=== PATIENT | female | born 1975 | race Caucasian/White ===

== ENCOUNTER 2019-03-10 16:44 | Inpatient (IN) ==
[2019-03-10] MEDS ORDERED: NS 1,000 ML IV ONE ×2 (19:27→21:51)
[2019-03-10] MEDS ORDERED: NARCAN IV ONE (19:27)
[2019-03-10 19:47] LABS: BASO# 0.01 X1000 (0.0-0.2); BASO% 0.1 % (0.0-0.8); EOS# 0.16 X1000 (0.0-0.7); EOS% 1.7 % (0.0-10.0); HEMOGLOBIN 13.3 g/dL (12.0-16.0); IMM GRAN# 0.02 X1000 (0.0-0.04); IMM GRAN% 0.2 % (0.0-0.5); LYMPH# 1.94 X1000 (1.2-3.4); LYMPH% 20.5 % (20.5-51.1); MCH 31.7 PG (27-31); MCHC 30.9 g/dL (33-37); MCV 102.4 FL (81-99); MONO# 0.98 X1000 (0.11-0.59); MONO% 10.3 % (1.7-9.3); MPV 10.9 FL (7.4-10.4); NEUT# 6.37 X1000 (1.4-6.5); NEUT% 67.2 % (42.2-75.2); PLT 208 X1000 (130-400); RDW 13.1 % (11.5-14.5); WBC 9.48 X1000 (4.8-10.8)
[2019-03-10 19:57] LABS: ALLEN TEST YES; BE -8.7 mmoll (-3.0-3.0); BLOOD TYPE ARTERIAL; HCO3-(ACT) 18.1 mmoll (20.0-26.0); METHB 1.1 % (0.0-1.5); O2(CT) 16.6 mL/dL (15.0-23.0); O2HB 94.5 % (95.0-99.0); PCO2(98.6) 43 mmHg (35-45); PO2(98.6) 88 mmHg (60-100); SAMPLE BLOOD; THB 12.4 g/dL (11.5-17.4); pH(98.6) 7.24 (7.35-7.45)
[2019-03-10 19:58] LABS: MODALITY ROOM AIR
--- NOTE | 2019-03-10 20:03 | EKG Report ---
Test Performed on : 03/10/2019 5:17:54 PM Test Reason : hypotension Blood Pressure : / mmHG Vent. Rate : 042 BPM Atrial Rate : 042 BPM P-R Int : 184 ms QRS Dur : 090 ms QT Int : 450 ms P-R-T Axes : 035 011 020 degrees QTc Int : 375 ms Marked sinus bradycardia. Minimal voltage criteria for LVH, may be normal variant Septal infarct , age undetermined Abnormal ECG When compared with ECG of 28-FEB-2014 14:37, Nonspecific T wave abnormality now evident in Lateral leads Unconfirmed Result
[2019-03-10 20:10] LABS: ALB/GLOB RATIO 1.8; ALBUMIN 4.6 g/dL (3.5-5.0); CALCIUM 9.1 mg/dL (8.8-10.2); MAGNESIUM 2.3 mg/dL (1.5-2.7); POTASSIUM 3.9 mmol/L (3.5-5.1); TOTAL BILIRUBIN 0.32 mg/dL (0.20-1.00); TOTAL PROTEIN 7.1 g/dL (6.3-8.3)
--- NOTE | 2019-03-10 20:13 | Diag Imaging Result Doc PS360 ---
EXAM: CHEST-2 VIEWS HISTORY: short of breath TECHNIQUE: Two views COMPARISON: 02/28/2014 FINDINGS: The lungs are well expanded. The heart is not enlarged. The vessels are not distended. There are no infiltrates. No pleural effusions. IMPRESSION: No acute abnormality. Electronically signed by Tariq Ferrera 03/10/2019 8:10 PM
[2019-03-10 22:44] LABS: URINE SOURCE CATH
[2019-03-10 22:50] LABS: BILIRUBIN URINE NEGATIVE (NEGATIVE); BLOOD URINE NEGATIVE (NEGATIVE); COLOR YELLOW; GLUCOSE URINE NEGATIVE (NEGATIVE); KETONE URINE NEGATIVE (NEGATIVE); LEUKOCYTES URINE NEGATIVE (NEGATIVE); NITRITE URINE NEGATIVE (NEGATIVE); PROTEIN URINE NEGATIVE (NEGATIVE); SP GRAVITY URINE 1.006; TURBIDITY URINE CLEAR (CLEAR); UR EPITHELIAL CELLS <10 /HPF (<10); URINE BACTERIA 4+ /HPF; URINE RBC <10 /HPF (<10); URINE WBC <10 /HPF (<10); UROBILINOGEN URINE NORMAL (NORMAL)
[2019-03-10 22:59] LABS: UR AMPHETAMINES QUAL PRESUMPTIVE POSITIVE (NONE DETECT); UR BARBITUATES QUAL NONE DETECTED (NONE DETECT); UR BENZODIAZEPIN QUAL NONE DETECTED (NONE DETECT); UR CANNABINOIDS QUAL PRESUMPTIVE POSITIVE (NONE DETECT); UR COCAINE QUAL NONE DETECTED (NONE DETECT); UR METHADONE QUAL NONE DETECTED (NONE DETECT); UR OPIATES QUAL NONE DETECTED (NONE DETECT); UR OXYCODONE QUAL NONE DETECTED (NONE DETECT); UR PCP QUAL NONE DETECTED (NONE DETECT)
--- NOTE | 2019-03-10 23:25 | PROVIDER DOCUMENTATION ---
This chart was entered by Kate Acosta Scribe, acting as scribe for Phillip Malagon MD. HPI-General Adult - General Chief Complaint: B/P Problems Stated Complaint: BLOOD PRESSURE PROBLEMS Time Seen by Provider: 03/10/19 19:26 Source: patient Allergies/Adverse Reactions: Patient Allergies Allergy/AdvReac Type Severity Reaction Status Date / Time Penicillins Allergy Severe ANAPHYLAXIS Verified 03/10/19 17:04 Home Medications: Home Medication List Medication Instructions Recorded Confirmed Last Taken Type Bupropion X.l. [Wellbutrin Xl] 150 mg PO BID 06/11/12 03/10/19 03/10/19 History Metoprolol Succinate E.r. [Toprol 200 mg PO DAILY 06/11/12 03/10/19 03/10/19 History Xl] Buspirone HCl 30 mg PO BID 03/10/19 03/10/19 03/09/19 History Celecoxib [Celebrex] 200 mg PO DAILY 03/10/19 03/10/19 03/10/19 History Clonidine [Catapres] 0.1 mg PO DAILY 03/10/19 03/10/19 03/10/19 History Doxepin HCl 10 mg PO QHS 03/10/19 03/10/19 Unknown History Duloxetine [Cymbalta] 60 mg PO DAILY 03/10/19 03/10/19 03/10/19 History Duloxetine [Cymbalta] 90 mg PO QHS 03/10/19 03/10/19 03/09/19 History Ezetimibe [Zetia] 10 mg PO QHS 03/10/19 03/10/19 03/09/19 History Gabapentin [Neurontin] 300 mg PO TID 03/10/19 03/10/19 03/10/19 History Lisinopril 40 mg PO DAILY 03/10/19 03/10/19 03/10/19 History Montelukast Sodium [Singulair] 10 mg PO DAILY 03/10/19 03/10/19 03/06/19 History Olanzapine [Zyprexa] 10 mg PO DAILY 03/10/19 03/10/19 03/10/19 History Omeprazole 40 mg PO DAILY 03/10/19 03/10/19 03/10/19 History Rosuvastatin Calcium [Crestor] 40 mg PO QHS 03/10/19 03/10/19 03/09/19 History Tizanidine [Zanaflex] 4 mg PO TID 03/10/19 03/10/19 03/10/19 History Valacyclovir HCl [Valtrex] 500 mg PO DAILY 03/10/19 03/10/19 03/10/19 History Zonisamide [Zonegran] 200 mg PO BID 03/10/19 03/10/19 03/10/19 History - History of Present Illness -Gen Adult Nature of Presenting Problems: pt is a 43 yr old female presenting with 4 day complaint of nausea, vomiting and diarrhea. pt reports onset after smoking meth for the 1st time. pt also admits weakness, fatigue and loss of appetite. pt denies hx of drug abuse, states "I just wanted to try it" Location of Pain/Injury: reports: none Pain Radiation: reports: no radiation Quality of Pain: reports: none Severity: reports: moderate Onset/Duration: reports: 4 days ago Timing: reports: still present Context/Activities at Onset: reports: other (onset just after smoking meth) Modifying Factors: improves with: nothing Associated Symptoms: reports: diarrhea, fatigue, nausea, vomiting, weakness. denies: chest pain, fever/chills, genitourinary problems, shortness of breath Similar Symptoms Previously?: No Recently seen or treated by another doctor?: No Review of Systems - Adult - REVIEW OF SYSTEMS - ADULT Constitutional: denies: fatique Eyes: denies: blurred vision Ears, Nose, Mouth & Throat: denies: ear pain, sinus problem, throat pain Cardiovascular: denies: chest pain, palpitations, syncope Respiratory: reports: no symptoms reported. denies: shortness of breath Gastrointestinal: reports: diarrhea, nausea, poor appetite, vomiting. denies: abdominal pain Genitourinary: denies: dysuria, frequency Musculoskeletal: reports: muscle weakness Integumentary: reports: no symptoms reported Neurological: denies: dizziness/vertigo, headache/migraines, syncope Psychiatric: reports: no symptoms reported Endocrine: reports: no symptoms reported Hematologic/Lymphatic: reports: no symptoms reported Allergic/Immunologic: reports: no symptoms reported All Other Systems: Reviewed and Negative Past History - Adult - PAST MEDICAL HISTORY-ADULT Review of Records: reports: Old Records Reviewed, Nursing Assessment Review, Medications Reviewed, Social history reviewed & non-contributory. Major Childhood Illnesses: reports: denies history Cardiovascular: reports: denies history Respiratory: reports: denies history Gastrointestinal: reports: denies history Obstetrical/Gynecological: reports: denies history Genitourinary: reports: denies history Musculoskeletal: reports: denies history Neurological: reports: denies history Endocrine/Immune: reports: denies history Other Conditions: reports: denies history Additional History: sleep apnea, anxiety - PRIOR SURGERIES/PROCEDURES Surgical/Procedure History: reports: other (brain tumor removed 2001) - IMMUNIZATION STATUS Childhood Immunizations: See Nurse Assessment Flu Vaccine: See Nurse Assessment - FAMILY HISTORY Family History: reviewed, not pertinent - SOCIAL HISTORY Smoking: cigarettes Provider spent 3-5 mins advising pt. on dangers of tobacco.: Discussed manners to quit use, and f/u contacts for add'l counseling. Substance Use: alcohol, amphetamines (crystal meth), benzodiazepines (xanax) Living Situation: family Occupation: disabled Physical Exam-General - CONSTITUTIONAL General Appearance: alert, no apparent distress, slow to respond - EYES Eyes: other (right eye prostetic) - HEAD, EARS, NOSE, MOUTH & THROAT HENMT: normocephalic/atraumatic, moist mucous membranes - NECK Neck: non-tender, full range of motion, supple, normal inspection - RESPIRATORY Respiratory: lungs clear, normal breath sounds - CARDIOVASCULAR Cardiovascular: normal peripheral pulses, no edema, bradycardia (50) - GASTROINTESTINAL (ABDOMEN) Abdominal Exam: normal bowel sounds, non tender, soft - LYMPHATIC Lymphatic: no adenopathy - MUSCULOSKELETAL Back Exam: normal inspection, no CVA tenderness, no vertebral tenderness Extremity: normal range of motion, non-tender, normal gait, normal inspection - SKIN Integumentary: normal color, normal turgor, warm/dry - NEUROLOGIC Neurologic: grossly normal - PSYCHIATRIC Psych/Mental Status: normal mood/affect Progress - PLAN OF CARE/RESULTS Progress/Plan/Lab Results: Vital Signs - 8 hr 03/10/19 16:51 Temperature 97.9 F Pulse Rate 48 L Respiratory Rate 16 Blood Pressure 94/62 O2 Sat by Pulse Oximetry 100 Result Diagrams: 03/10/19 17:28 03/10/19 17:28 - REASSESSMENT Reassessment #1 Time Reassessed: 22:25 Status: improving (STILL BRADYCARDIC, BP BETTER, PT REFUSED CATHETER BUT I INSISTED THAT WE GET URINE TO THE LAB, HERE MORE THAN 5 HRS!) - XRAY 1 XRAY Study: Chest Impression: Normal (Signed EXAM: CHEST-2 VIEWS HISTORY: short of breath TECHNIQUE: Two views COMPARISON: 02/28/2014 FINDINGS: The lungs are well expanded. The heart is not enlarged. The vessels are not distended. There are no infiltrates. No pleural effusions. IMPRESSION: No acute abnorma lity. Electronically signed by Tariq Ferrera 03/10/2019 8:10 PM 03/10/192009 Interpreting Physician: Tariq Ferrera MD Dictated Date/Time: 03/10/192009 cc: Phillip Malagon MD; SHERI PRUETT) - CONSULTS/PCP/HOSPITALIST Notification #1 *Consult/PCP/Hospitalist*: DR RICHMOND Time Discussed: 23:22 Consult Disposition: Admit Departure - Departure Date of Disposition Decision: 03/10/19 Time of Disposition Decision: 23:22 DIAGNOSIS: Bradycardia, Dehydration, Acidosis, Polysubstance abuse Disposition: ADMITTED INPATIENT 09 Certified Medical Emergency: Emergent Condition: Fair Referrals and Follow-Ups: SHERI PRUETT CRNP [Primary Care Provider] - - Critical Care Note This patient required my direct & personal management of CC.: No Attestation - Physician/ NICK Attestation Patient care was provided by Advanced Practice Provider:: No The physician spent face to face time with patient:: Yes Advanced Practice Provider documentation review:: Supervising physician onsite and consulted in the evaluation and care of this patient. The physician did have a face to face encounter with the patient. This chart was documented by the indicated scribe, (Kate Acosta Scribe) and accurately reflects the services I performed and decisions made by me, Phillip Malagon MD, as attested by the provider's signature.
[2019-03-11] MEDS ORDERED: NS 1,000 ML ONE (03:59)
--- NOTE | 2019-03-11 05:09 | HISTORY AND PHYSICAL ---
PRIMARY CARE PHYSICIAN: None. CHIEF COMPLAINT: "Does not feel well, took drugs." HISTORY OF PRESENTING ILLNESS: The patient is a 43-year-old female with a history of hypertension, hyperlipidemia and a previous brain tumor who had presented to the emergency department after she went on a libertarian spell with taking methamphetamines about 3 days ago. The patient states that she did not feel well after that, and as per mother she was confused and was having a low heart rate. She was evaluated in the emergency department, it seems that she is on a beta-nelly and she was somewhat symptomatic. Due to her presenting symptoms it was thought that she would need admission for further management. At the time of my examination the patient had denied any headache, fever, chills, chest pain, shortness of breath or any weight changes. Complains that she does not feel well. PAST MEDICAL HISTORY: Includes hypertension, hyperlipidemia, brain tumor. PAST SURGICAL HISTORY: Brain surgery, right prosthetic eye, hysterectomy. ALLERGIES: Penicillin. CURRENT MEDICATIONS: Include Wellbutrin 150 mg p.o. b.i.d., buspirone 30 mg p.o. b.i.d., Celebrex 200 mg p.o. daily, clonidine 0.1 mg p.o. daily, doxepin 10 mg p.o. at bedtime, Cymbalta 60 mg p.o. daily and 90 mg p.o. at bedtime, Zetia 10 mg p.o. at bedtime, gabapentin 300 mg p.o. t.i.d., lisinopril 40 mg p.o. daily, metoprolol 200 mg p.o. daily, Singular 10 mg p.o. daily, Zyprexa 10 mg p.o. daily, omeprazole 40 mg p.o. daily, Rosuvastatin 40 mg p.p. at bedtime, Valtrex 500 mg p.o. daily, Zonegran 200 mg p.o. b.i.d. SOCIAL HISTORY: Twenty pack years history of smoking. Denies any history of alcohol use. Admits to methamphetamine use. FAMILY HISTORY: Positive for coronary disease in father. REVIEW OF SYSTEMS: Fourteen point review of systems is as listed in the HPI. Other systems are negative. PHYSICAL EXAMINATION: GENERAL: A cooperative friendly female. She is resting more comfortably now. VITAL SIGNS: Temperature is 97.9 degrees, pulse is 48, respirations 16, blood pressure is 94/62. HEENT: Atraumatic, normocephalic. NECK: No masses. CHEST: Clear to auscultation. CARDIOVASCULAR: Regular rate and rhythm. ABDOMEN: Soft. Positive bowel sounds. EXTREMITIES: No edema. NEUROLOGIC: She is awake, alert and oriented x3. : No bladder distention. SKIN: Warm. LABORATORIES AND STUDIES: WBC is 9.48, hemoglobin is 13.3, hematocrit is 43.0, platelets 208,000. Sodium is 140, potassium is 3.9, chloride is 105, CO2 is 20, BUN is 32, creatinine is 2.0, glucose is 98. Toxicology screen is positive for amphetamines and cannabinoids. ASSESSMENT: A 43-year-old female with a history of hypertension, hyperlipidemia and brain tumor who had presented to the emergency department after she went on a libertarian spell of taking methamphetamines about 3 days ago. Shortly after that she has became more confused and agitated. As per family she was not acting right. The patient was brought to the emergency department where she was also found to be bradycardic, and since then she is on a high dose of beta nelly. Due to these presenting symptoms she will require admission for further management. ASSESSMENT: 1. Altered mental status probably from #2. 2. Drug use with methamphetamines. 3. Bradycardia possibly secondary to beta nelly. 4. Hypertension. 5. Acute kidney injury. PLAN: 1. We will admit the patient to a medical floor with telemetry. 2. Continue with neurologic checks. 3. Continue with supportive care. 4. We will hold her beta nelly for now. 5. Monitor blood pressure closely. 6. We will continue with gentle hydration and monitor renal function. 7. We will put the patient on DVT prophylaxis with SCDs. 8. We will continue to follow, reassess and make further recommendations based on the patient's clinical course. cc: Robert Gill MD
[2019-03-11] MEDS ORDERED: ZOFRAN IV PRN (08:08)
--- NOTE | 2019-03-11 10:24 | PROGRESS NOTE ---
DATE: 03/11/2019 SUBJECTIVE: Ms. Quezada was admitted yesterday, does not feel well. She is followed by AYSE Potter. A 43-year-old with a history of hypertension, hyperlipidemia, previous brain tumor, presented to the emergency department. Was at a republican and tried some methamphetamine and then did not feel well. This was this is 6 days ago. She is still does not feel very well. She went to stay with her mother. He has not been eating or drinking. She was evaluated the emergency department. It Seemed that she was on a beta nelly and somewhat symptomatic. She had some confusion. Her sister was there this morning. Denied any headache. So, admitted for altered mental status, one time drug use of methamphetamine, bradycardia possibly secondary to the beta nelly, hypertension, and acute kidney injury. OBJECTIVE: Vital signs: Today, temperature is 99.3 degrees, pulse 47, respirations 16, blood pressure 125/76. HEENT: Pupils are equal round. Lungs: Clear in all lung lopez. Cardiovascular: Regular rhythm and rate without murmur or S3. Abdomen: Soft, nontender, nondistended. Skin: Warm and dry. LABORATORY DATA: Hematocrit 43, hemoglobin 13, platelet count 208,000. Sodium 140, potassium 3.9, chloride 105, BUN 32, creatinine 2.0, albumin 4.6. Urine screen positive for cannabinoids and positive for amphetamines. Blood gas, pH is 7.24, pCO2 43, PO2 is 88. Creatinine is 2.0. IMAGING: Chest x-ray was clear, no acute abnormality. ASSESSMENT AND PLAN: 1. Looks like she denied marijuana; of course, her sister is in the room, but marijuana and methamphetamine and I am not sure whether this was just a 1 time dose, 1 time trial or if she has been using it. 2. Bradycardia, possibly secondary to beta nelly. 3. Acute kidney injury suspected. Blood pressure is coming up with fluids. We will watch her kidney function. 4. Hypercholesterolemia. Note she is on Cymbalta 60 mg a day, Prinivil 40 mg a day, BuSpar 30 mg b.i.d., Wellbutrin 150 mg b.i.d., doxepin 10 mg at bedtime. In addition, Cymbalta another 90 mg a day, so very well could be having some serotonin symptoms. We will give her a regular diet. cc: Artem Licona MD
[2019-03-11] MEDS: NS 1,000 ML IV SCH ×2 (11:02→18:23)
[2019-03-11] MEDS: SINGULAIR PO SCH (11:02)
[2019-03-11] MEDS: PRINIVIL PO SCH (11:02)
[2019-03-11] MEDS: PRILOSEC PO SCH (11:02)
[2019-03-11] MEDS: WELLBUTRIN XL PO SCH ×2 (11:02→20:34)
[2019-03-11] MEDS: ZYPREXA PO SCH (11:03)
[2019-03-11] MEDS: BUSPAR PO SCH ×2 (11:03→20:35)
[2019-03-11] MEDS: CATAPRES PO SCH (11:03)
[2019-03-11] MEDS: CYMBALTA PO SCH (11:03)
[2019-03-11] MEDS: VALTREX PO SCH (11:03)
[2019-03-11] MEDS: ZONEGRAN PO SCH ×2 (12:26→20:34)
[2019-03-11] MEDS ORDERED: SINEQUAN PO SCH (21:00)
[2019-03-11] MEDS ORDERED: CRESTOR PO SCH (21:00)
[2019-03-11] MEDS ORDERED: ZETIA PO SCH (21:00)
[2019-03-11] MEDS ORDERED: CYMBALTA PO SCH (21:00)
[2019-03-12] MEDS: NS 1,000 ML IV SCH (05:29)
[2019-03-12] MEDS: PRILOSEC PO SCH ×2 (05:56→06:17)
[2019-03-12 07:34] LABS: BASO# 0.01 X1000 (0.0-0.2); BASO% 0.2 % (0.0-0.8); EOS% 1.6 % (0.0-10.0); HEMATOCRIT 33.2 % (37.0-47.0); HEMOGLOBIN 10.3 g/dL (12.0-16.0); LYMPH# 1.99 X1000 (1.2-3.4); LYMPH% 31.4 % (20.5-51.1); MCH 31.1 PG (27-31); MCV 100.3 FL (81-99); MONO# 0.66 X1000 (0.11-0.59); MONO% 10.4 % (1.7-9.3); MPV 10.3 FL (7.4-10.4); NEUT# 3.58 X1000 (1.4-6.5); NEUT% 56.4 % (42.2-75.2); PLT 142 X1000 (130-400); RBC 3.31 XMIL (4.2-5.4); RDW 12.8 % (11.5-14.5); WBC 6.34 X1000 (4.8-10.8)
[2019-03-12 08:10] LABS: CALCIUM 8.5 mg/dL (8.8-10.2); MAGNESIUM 1.8 mg/dL (1.5-2.7); POTASSIUM 3.2 mmol/L (3.5-5.1)
[2019-03-12] MEDS: SINGULAIR PO SCH (08:49)
[2019-03-12] MEDS: PRINIVIL PO SCH (08:49)
[2019-03-12] MEDS: VALTREX PO SCH (08:49)
[2019-03-12] MEDS: CYMBALTA PO SCH (08:49)
[2019-03-12] MEDS: BUSPAR PO SCH (08:49)
[2019-03-12] MEDS: ZYPREXA PO SCH (08:49)
[2019-03-12] MEDS: CATAPRES PO SCH (08:49)
[2019-03-12] MEDS: ZONEGRAN PO SCH (08:49)
[2019-03-12] MEDS: WELLBUTRIN XL PO SCH (08:49)
[2019-03-12 12:31] VITALS: BP 124/70
--- NOTE | 2019-03-12 13:39 | DISCHARGE SUMMARY ---
ADMISSION DATE: 03/11/2019 DISCHARGE DATE: 03/12/2019 BRIEF HISTORY: She is followed by AYSE Potter. She came in, she did not feel well. Is a 43-year-old female with a history of hypertension, hyperlipidemia, previous brain tumor, who presented to the emergency room department after she went on a constitution party spell, taking her first encounter with methamphetamines 3 days before admission. After that, she said her mother reported she was confused. She was evaluated in the emergency room. She was on a beta nelly. They noticed some bradycardia. PAST MEDICAL HISTORY: 1. Hypertension. 2. Hyperlipidemia. 3. History of brain tumor for which she has had brain surgery. PAST SURGICAL HISTORY: Brain surgery, right prosthetic eye, hysterectomy. ALLERGIES: Penicillin. ADMISSION DIAGNOSES: 1. Lethargy, some mild altered mental status. 2. Drug use with methamphetamine 3 days ago. 3. Some bradycardia, suspect related to beta nelly. 4. Hypertension. 5. Acute kidney injury. 6. Note her drug screen was positive for cannabinoids and methamphetamines. HOSPITAL COURSE: She seemed to improve, was more awake and she was eating and blood pressure remained stable 141/71, 124/70, and was requesting to go home. Had numerous counseling on the importance of avoiding both cannabinoids and methamphetamines or any illicit drugs. Renal function, hepatic function, respiratory and cardiac functions all look good. No neurologic deficits and so felt she could she could go home. DISCHARGE MEDICATIONS: We will discharge her on the medicines she is taking here in the hospital, which is Wellbutrin XL 150 mg twice a day, BuSpar 30 mg b.i.d. She was taking Catapres 0.1 mg daily, Sinequan 10 mg at bedtime, Cymbalta 60 mg a day, and Zetia 10 mg at bedtime, Prinivil 40 mg a day, Singulair 10 mg a day, Prilosec 40 mg a day, zonisamide 200 mg p.o. b.i.d., Valtrex 500 mg p.o. daily. I have decreased her Cymbalta. She was taking an additional 90 mg so I wonder if some of her trouble was a little bit of serotonin excess, so she will follow up with her primary care. cc: Artem Licona MD
== END 2019-03-12 13:53 | disposition home or self-care (01) | DRG 309 ==
LOC: ED 16:44 → 3N 03-11 05:25 → SUATTDRO 03-11 05:25 → 3N 03-11 08:06
PROVIDERS: ATTEND Emergency Medicine